=== PATIENT | female | born 1980 | race Caucasian/White ===

== ENCOUNTER 2020-06-18 21:43 | Observation (INO) | payer MEDICAID ==
[~2020-06-18] VITALS: Ht 154.9 cm; Wt 68.0 kg
[2020-06-18] MEDS ORDERED: BUTORPHANOL TARTRATE 2 MG/ML VIAL IM NR (22:20)
== END 2020-06-19 09:30 | disposition home or self-care (01) ==
LOC: 8 EST LDRP 21:43
PROVIDERS: ADMIT Obstetrics & Gynecology; ATTEND Obstetrics & Gynecology
DX: O26.892 Other specified pregnancy related conditions, second trimester (principal); O62.9 Abnormality of forces of labor, unspecified; R10.9 Unspecified abdominal pain; Z3A.21 21 weeks gestation of pregnancy
CPT/HCPCS: 76805; 96372; 99281; G0378; J0595